=== PATIENT | male | born 1975 | race Caucasian/White ===

== ENCOUNTER 2019-01-04 17:09 | Emergency (ER) | payer OTHER ==
[2019-01-04 17:14] VITALS: BP 124/82
--- NOTE | 2019-01-04 17:37 | EDPHY ---
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 Reports mild pain. Reports mild decrease in hearing. He denies any discharge from the ear. He denies any tinnitus, dizziness, vertigo, or headache. No other complaints. - Personal History Current Tetanus/Diphtheria Vaccine: Yes Current Tetanus Diphtheria and Acellular Pertussis (TDAP): Yes - Medical/Surgical History Hx Asthma: No Hx Chronic Respiratory Disease: No Hx Diabetes: No Hx Cardiac Disease: No Hx Renal Disease: No Hx Cirrhosis: No Hx Alcoholism: No Hx HIV/AIDS: No Hx Splenectomy or Spleen Trauma: No Other PMH: GERD - Social History Smoking Status: Never smoked - Physical Exam Exam: General: Alert, nontoxic. ENT: There is erythema to the superior aspect of the external auditory canal of the left ear. Mild erythema the superior aspect of the tympanic membrane. There is no discharge in the canal. The tympanic membrane does appear intact with normal anatomic landmarks and light reflex. Right ear unremarkable. Naso and oropharynx unremarkable. Skin: No lesions to the left ear or surrounding tissue. Constitutional: Initial Vital Signs Temperature (C) 36.7 C 01/04/19 17:12 Heart Rate 73 01/04/19 17:12 Respiratory Rate 16 01/04/19 17:12 Blood Pressure 124/82 H 01/04/19 17:12 O2 Sat (%) 96 01/04/19 17:12 O2 Delivery Mode Room Air Allergies/Adverse Reactions: erythromycin base [Erythromycin Base] Allergy (Verified 01/04/19 17:12) Sulfa (Sulfonamide Antibiotics) Allergy (Verified 01/04/19 17:12) ERYTHRO Allergy (Uncoded 01/04/19 17:12) SULFA Allergy (Uncoded 01/04/19 17:12) Home Medications: Medication Instructions Recorded Ciprofloxacin/Dexamethasone 4 drops OTIC BID 7 Days bottle 01/04/19 [Ciprodex (RX)] Medical Decision Making ED Course/Re-evaluation: Patient seen under the supervision of my primary supervising physician Dr. Annalee Blanton. Patient presents after getting a piece of hot metal slag into his left ear. There does appear to be a burn. The tympanic membrane does appear to be intact. I have consulted with Dr. Oumou Velásquez. She recommend Ciprodex. Patient can follow up in office for further evaluation and care. Home care is discussed with the patient. Return precautions are given. The patient voiced understanding and agreement with plan. Differential Diagnosis: Included but not limited to burn, tympanic membrane rupture, foreign body Departure - Departure Disposition: Home, Routine, Self-Care Clinical Impression: Burn of ear canal Qualifiers: Encounter type: initial encounter Laterality: left Burn degree: superficial ( 1st degree) Qualified Code(s): T20.112A - Burn of first degree of left ear [any part, except ear drum], initial encounter Condition: Good Instructions: Ciprofloxacin/Dexamethasone (Into the ear) Additional Instructions: Please call tomorrow and arrange a follow-up appointment with the Ears Nose and Throat doctor Use the ear drops twice a day for a week unless told otherwise by the Ears Nose and Throat doctor You can use ibuprofen 600 mg 3 times a day for the next 2-3 days as needed for pain If symptoms worsen or new symptoms develop return to the emergency department for recheck Referrals: NONE *PRIMARY CARE P,. [Primary Care Provider] - As per Instructions Oumou Velásquez MD [Medical Doctor] - As per Instructions Prescriptions: Ciprofloxacin/Dexamethasone [Ciprodex (RX)] 4 drops OTIC BID 7 Days bottle
== END 2019-01-04 17:57 | disposition home or self-care (01) ==
DX: T20.112A Burn of first degree of left ear [any part, except ear drum], initial encounter (principal); X18.XXXA Contact with other hot metals, initial encounter; Y92.89 Other specified places as the place of occurrence of the external cause; Y99.0 Civilian activity done for income or pay; Y93.89 Activity, other specified